=== PATIENT | male | born 1965 | race Hispanic/Latino ===

== ENCOUNTER 2020-11-14 06:08 | Emergency (ER) | payer SELFPAY ==
--- OUTSIDE RECORDS SUMMARY | 2020-11-14 06:10 | XMS REPORT | Continuity of Care Document ---
:1965 Author Organization [facility] t Address [address] [place] [address] Care Team Providers Name Role Phone Guillermo Magallon MD Attending Clinician Problems This patient has no known problems. Allergies, Adverse Reactions, Alerts This patient has no known allergies or adverse reactions. Medications This patient has no known medications. Procedures This patient has no known procedures. Encounters Start End Encounter Admission Attending Care Care Encounter Source Date/Time Date/Time Type Type Clinicians Facility Department ID 2020-08-12 2020-08-12 Office JUAREZ Magallon [id number] [id number] 08:34:32 09:00:19 Visit [facility] [id number] Surgical [id number] Specialti [id number] [address] Results This patient has no known results.
[2020-11-14] MEDS ORDERED: ACETAMINOPHEN 500 MG TAB ONE (07:17)
[2020-11-14] MEDS ORDERED: NA CHLORIDE 0.9% 1,000 ML ONE ×2 (07:41→08:31)
[2020-11-14 08:03] LABS: SARS-COV-2 RT PCR POSITIVE (NEGATIVE)
--- NOTE | 2020-11-14 08:04 | RAD REPORT ---
EXAM DESCRIPTION: RAD - Chest Single View - 11/14/2020 7:43 am CLINICAL HISTORY: COUGH COMPARISON: None TECHNIQUE: AP portable chest image was obtained 11/14/2020 7:43 am . FINDINGS: Lung volumes are very low. Patchy interstitial and alveolar opacities are present worse on the left. Bilateral pneumonia is suspected, exaggerated in severity due to the low lung volumes. Thi s is a nonspecific pattern commonly seen with viral infiltrate. In the current clinical environment t his is possibly COVID-19 pneumonia. No focal lobar consolidation more typical bacterial pneumonia. Trachea is midline. Heart and vasculature are normal. No measurable pleural effusion and no pneumotho rax. No acute bony abnormality seen. No acute aortic findings suspected. IMPRESSION: Mild bilateral pneumonia pattern exaggerated in severity due to very low lung volumes. Pattern is a commonly seen viral pneumonia pattern. In the current clinical environment COVID-19 woul d be a primary consideration and can be correlated with testing.
[2020-11-14 08:09] LABS: BUN Blood Urea Nitrogen 13 mg/dL (7-18); Bicarbonate 25 mmol/L (21-32); Ferritin 795.9 ng/mL (26-388); Glucose Level 307 mg/dL (74-106); Potassium 4.3 mmol/L (3.5-5.1); Sodium Level 131 mmol/L (136-145)
[2020-11-14 08:25] LABS: Absolute Lymphocytes (CBC) 0.7 K/uL (0.7-4.9); Basophils % 0.2 % (0-1.3); Lymphocytes % 9.1 % (15.3-44.8); RBC Red Blood Cell Count 4.83 M/uL (4.33-5.43)
[2020-11-14] MEDS ORDERED: METHYLPREDNISOLONE 125 MG INJ ONE (08:31)
--- NOTE | 2020-11-14 08:31 | EDPHYS ---
Physician Documentation [facility] Name: Lucy Henderson Age: 55 yrs Sex: Male : 1965 Arrival Date: 11/14/2020 Time: 06:09 Bed 15 Private MD: ED Physician Gerardo Anderson HPI: 11/14 08:08 This 55 yrs old Male presents to ER via Ambulatory with complaints of rn Diarrhea, Cough, Headache. 08:08 The patient or guardian reports cough, described as mild, with no sputum. Onset: The rn symptoms/episode began/occurred 3 day(s) ago. Severity of symptoms: At their worst the symptoms were mild, in the emergency department the symptoms are unchanged. Modifying factors: The symptoms are alleviated by nothing, the symptoms are aggravated by nothing. The patient has not experienced similar symptoms in the past. The patient has not recently seen a physician. Reports cough, headache, fatigue, chills, fever, and diarrhea for 2-3 days, reports 2 family members sick, one tested neg for covid, the other was inconclusive. Denies sob. No chronic lung problems. . Historical: - Allergies: 06:52 No Known Allergies; lp1 - Home Meds: 06:52 lisinopril 20 mg Oral tab 1 tab once daily [Active]; Metformin Oral [Active]; lp1 glimepiride 4 mg Oral tab 1 tab once daily [Active]; - PMHx: 06:52 Hypertension; Diabetes - NIDDM; lp1 - PSHx: 06:52 Cholecystectomy; lp1 - Immunization history:: Adult Immunizations up to date. - Social history:: Smoking status: Patient denies any tobacco usage or history of. - Family history:: not pertinent. - Hospitalizations: : No recent hospitalization is reported. 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 Exam: 08:08 Constitutional: This is a well developed, well nourished patient who is awake, alert, rn and in no acute distress. Head/Face: Normocephalic, atraumatic. ENT: no stridor, dry MM Cardiovascular: Tachycardic, regular Respiratory: No respiratory distress, speaking full sentences. Abdomen/GI: Soft, non-tender Skin: Warm, dry MS/ Extremity: Pulses equal, no cyanosis. Neurovascular intact. Full, normal range of motion. Equal circumference. Neuro: Awake and alert, GCS 15, oriented to person, place, time, and situation. Cranial nerves II-XII grossly intact. Motor strength 5/5 in all extremities. Sensory grossly intact. Cerebellar exam normal. Normal gait. Vital Signs: 06:46 BP 157 / 86; Pulse 124; Resp 20; Temp 102.8; Pulse Ox 94% ; Weight 81.65 kg (R); Height lp1 5 ft. 4 in. (162.56 cm); Pain 10/10; 07:30 BP 142 / 95; Pulse 100; Resp 19; Pulse Ox 96% ; jl7 08:22 BP 125 / 86; Pulse 94; Resp 17; Temp 98.7(O); Pulse Ox 97% on R/A; Pain 10/10; jl7 06:46 Body Mass Index 30.90 (81.65 kg, 162.56 cm) lp1 MDM: 07:10 Patient medically screened. rn 08:29 Differential Diagnosis: Bronchitis Influenza Upper Respiratory Infection Viral Syndrome rn Pneumonia. Data reviewed: vital signs, nurses notes, lab test result(s), radiologic studies, plain films, and as a result, I will discharge patient. Counseling: I had a detailed discussion with the patient and/or guardian regarding: the historical points, exam findings, and any diagnostic results supporting the discharge/admit diagnosis, lab results, radiology results, the need for outpatient follow up, to return to the emergency department if symptoms worsen or persist or if there are any questions or concerns that arise at home. Response to treatment: the patient's symptoms have mildly improved after treatment, and as a result, I will discharge patient. Special discussion: I discussed with the patient/guardian in detail that at this point there is no indication for admission to the hospital. It is understood, however, that if the symptoms persist or worsen the patient needs to return immediately for re-evaluation. 11/14 06:54 Order name: COVID-19 : Document "Date of Symptom Onset" if Symptomatic. lp1 11/14 06:54 Order name: Flu lp1 11/14 07:17 Order name: Procalcitonin rn 11/14 07:17 Order name: CBC with Diff rn 11/14 07:17 Order name: IV Start; Complete Time: 08:12 rn 11/14 07:17 Order name: XRAY Chest (1 view) rn 11/14 07:17 Order name: Basic Metabolic Panel rn 11/14 07:17 Order name: Ferritin rn 11/14 08:03 Order name: COVID-19/FLU A+B EDMS Administered Medications: 07:02 Drug: Tylenol 1000 mg Route: PO; lp1 08:21 Follow up: Response: No adverse reaction; Temperature is decreased jl7 07:30 Drug: NS 0.9% 1000 ml Route: IV; Rate: 1000 ml; Site: right forearm; jl7 08:22 Follow up: Response: No adverse reaction; IV Intake: 1000ml jl7 08:21 Drug: SOLU-Medrol 125 mg Route: IVP; Site: right forearm; jl7 Disposition: 11/14/20 08:30 Discharged to Home. Impression: Coronavirus infection, unspecified, Viral pneumonia, unspecified. - Condition is Stable. - Discharge Instructions: Community-Acquired Pneumonia, Adult, [id number], COVID-19. - Prescriptions for Prednisone 20 mg Oral Tablet - take 1 tablet by ORAL route as directed for 14 days Take 2 tablets by mouth daily for 7 days, followed by 1 tablet by mouth daily for 7 days, total of 14 days.; 21 tablet. - Medication Reconciliation Form, Thank You Letter, Antibiotic Education, Prescription Opioid Use form. - Follow up: Private Physician; When: As needed; Reason: Recheck today's complaints, Re-evaluation by your physician. - Problem is new. - Symptoms have improved. Signatures: Dispatcher [employer] EDMS Gerardo Anderson MD MD rn Pena, Laura RN RN lp1 Yumiko Miller RN RN jl7 Corrections: (The following items were deleted from the chart) 07:19 06:54 CORONAVIRUS ordered. EDMS EDMS 07:20 06:55 Influenza Screen (A ordered. EDMS EDMS 09:20 08:30 11/14/2020 08:30 Discharged to Home. Impression: Coronavirus infection, jl7 unspecified; Viral pneumonia, unspecified. Condition is Stable. Forms are Medication Reconciliation Form, Thank You Letter, Antibiotic Education, Prescription Opioid Use. Follow up: Private Physician; When: As needed; Reason: Recheck today's complaints, Re-evaluation by your physician. Problem is new. Symptoms have improved. rn
--- NOTE | 2020-11-14 08:31 | ER ---
Nurse's Notes [facility] Name: Lucy Henderson Age: 55 yrs Sex: Male : 1965 Arrival Date: 11/14/2020 Time: 06:09 Bed 15 Private MD: Diagnosis: Coronavirus infection, unspecified;Viral pneumonia, unspecified Presentation: 11/14 06:46 Chief complaint: Patient states: Cough, dry, headache x 3 days; Denies feeling short of lp1 breath; some diarrhea, chills. Coronavirus screen: chills, cough unrelated to allergies, diarrhea, headache, shaking with chills. Ebola Screen: No symptoms or risks identified at this time. Initial Sepsis Screen: Does the patient meet any 2 criteria? Temp <36.0*C (96.8*F)) or > 38.3*C (100.9*F). HR > 90 bpm. Does the patient have a suspected source of infection? Yes: Productive cough/pneumonia. Risk Assessment: Do you want to hurt yourself or someone else? Patient reports no desire to harm self or others. Onset of symptoms was November 14, 2020. 06:46 Method Of Arrival: Ambulatory lp1 06:46 Acuity: SILVIA 2 lp1 Historical: - Allergies: 06:52 No Known Allergies; lp1 - Home Meds: 06:52 lisinopril 20 mg Oral tab 1 tab once daily [Active]; Metformin Oral [Active]; lp1 glimepiride 4 mg Oral tab 1 tab once daily [Active]; - PMHx: 06:52 Hypertension; Diabetes - NIDDM; lp1 - PSHx: 06:52 Cholecystectomy; lp1 - Immunization history:: Adult Immunizations up to date. - Social history:: Smoking status: Patient denies any tobacco usage or history of. - Family history:: not pertinent. - Hospitalizations: : No recent hospitalization is reported. Screenin:52 Abuse screen: Denies threats or abuse. Denies injuries from another. Nutritional lp1 screening: No deficits noted. Tuberculosis screening: No symptoms or risk factors identified. Fall Risk None identified. Assessment: 07:10 General: Appears in no apparent distress. uncomfortable, Behavior is calm, cooperative, jl7 appropriate for age. Pain: Complains of pain in MCCRACKEN Pain currently is 10 out of 10 on a pain scale. Neuro: Level of Consciousness is awake, alert, obeys commands, Oriented to person, place, time, situation. Cardiovascular: Patient's skin is warm and dry. Respiratory: Airway is patent Respiratory effort is even, unlabored, Respiratory pattern is regular, symmetrical. GI: Abdomen is non-distended, Reports diarrhea, nausea, vomiting. Derm: Skin is pink, warm \T\ dry. 08:22 Reassessment: Patient appears in no apparent distress at this time. No changes from jl7 previously documented assessment. Patient and/or family updated on plan of care and expected duration. Pain level reassessed. Patient is alert, oriented x 3, equal unlabored respirations, skin warm/dry/pink. Vital Signs: 06:46 BP 157 / 86; Pulse 124; Resp 20; Temp 102.8; Pulse Ox 94% ; Weight 81.65 kg (R); Height lp1 5 ft. 4 in. (162.56 cm); Pain 10/10; 07:30 BP 142 / 95; Pulse 100; Resp 19; Pulse Ox 96% ; jl7 08:22 BP 125 / 86; Pulse 94; Resp 17; Temp 98.7(O); Pulse Ox 97% on R/A; Pain 10/10; jl7 06:46 Body Mass Index 30.90 (81.65 kg, 162.56 cm) lp1 ED Course: 06:09 Patient arrived in ED. cf2 06:51 Triage completed. lp1 06:51 Arm band placed on left wrist. lp1 07:08 Yumiko Miller, RN is Primary Nurse. jl7 07:09 Gerardo Anderson MD is Attending Physician. rn 07:30 Patient has correct armband on for positive identification. Bed in low position. Call jl7 light in reach. Side rails up X 1. Pulse ox on. NIBP on. 07:30 Initial lab(s) drawn, by me, sent to lab. COVID swab sent to lab. Flu and/or RSV swab jl7 sent to lab. Inserted saline lock: 20 gauge in right forearm, using aseptic technique. Blood collected. 07:42 XRAY Chest (1 view) In Process Unspecified. EDMS 09:18 No provider procedures requiring assistance completed. IV discontinued, intact, jl7 bleeding controlled, No redness/swelling at site. Pressure dressing applied. Administered Medications: 07:02 Drug: Tylenol 1000 mg Route: PO; lp1 08:21 Follow up: Response: No adverse reaction; Temperature is decreased jl7 07:30 Drug: NS 0.9% 1000 ml Route: IV; Rate: 1000 ml; Site: right forearm; jl7 08:22 Follow up: Response: No adverse reaction; IV Intake: 1000ml jl7 08:21 Drug: SOLU-Medrol 125 mg Route: IVP; Site: right forearm; jl7 Intake: 08:22 IV: 1000ml; Total: 1000ml. jl7 Outcome: 08:30 Discharge ordered by . rn 09:19 Discharged to home ambulatory. 7 09:19 Condition: stable 09:19 Discharge instructions given to patient, Instructed on discharge instructions, follow up and referral plans. medication usage, Demonstrated understanding of instructions, follow-up care, medications, Prescriptions given X 1. 09:20 Patient left the ED. jl7 Signatures: Dispatcher [employer] EDMS Gerardo Anderson MD MD rn Pena, Laura, RN RN lp1 Yumiko Miller RN RN jl7 Jay Mtz cf2 Corrections: (The following items were deleted from the chart) 08:22 08:19 NS 0.9% 1000 ml IV at 1000 ml in right forearm jl7 jl7
[2020-11-14 09:35] VITALS: BP 125/86; TEMP 98.7; O2SAT 97
== END 2020-11-14 09:20 | disposition home or self-care (01) ==
LOC: ER 06:08
DX: U07.1 COVID-19 (principal); J12.82 Pneumonia due to coronavirus disease 2019; I10 Essential (primary) hypertension; E11.9 Type 2 diabetes mellitus without complications
CPT/HCPCS: 0240U; 36415; 71045; 80048; 82728; 84145; 85025; 96374; 99284; J2930; J7030